=== PATIENT | female | born 1935 | race Hispanic/Latino ===

== ENCOUNTER 2018-04-18 10:51 | Emergency (ER) | payer MEDICARE ==
[2018-04-18 11:43] VITALS: BP 104/33
--- NOTE | 2018-04-18 12:42 | Emergency Department Report ---
ED Extremity Problem HPI - General Chief complaint: Extremity Injury, Lower Stated complaint: LEG PAIN Time Seen by Provider: 04/18/18 12:30 Source: patient Mode of arrival: Ambulatory Limitations: No Limitations - History of Present Illness Initial comments: Patient is a 83-year-old female past history of congestive heart failure COPD and hypertension who is presenting with about 2-3 months of increased bilateral leg swelling. Patient states pain has increased slightly. Patient states the legs event as swollen as they are today for the last several months. Patient denies chest pain shortness of breath at this time. Patient states she went to her primary doctor this morning but they were unable to see her so she decided to come to the emergency department. Patient states the pain is a burning sensation and that she has edema leaking from the skin - Related Data Previous Rx's Medication Instructions Recorded Last Taken Type Clindamycin [Clindamycin Oral] 450 mg PO TID #30 capsule 05/21/14 Unknown Rx Sodium Polystyrene [Kayexalate] 15 gm PO ONCE #1 bottle 05/21/14 Unknown Rx Hydrocodone/Chlorphen Polis(Nf 5 ml PO Q12H PRN #100 ml 05/17/16 Unknown Rx [Tussionex (Nf)] Levofloxacin [Levaquin] 750 mg PO QDAY #7 tablet 05/17/16 Unknown Rx Furosemide [Lasix TAB] 40 mg PO QDAY #7 tablet 04/18/18 Unknown Rx traMADol [Ultram] 50 mg PO Q6HR PRN #7 tablet 04/18/18 Unknown Rx Allergies Allergy/AdvReac Type Severity Reaction Status Date / Time ampicillin Allergy Hives Verified 04/18/18 11:37 Sulfa (Sulfonamide Allergy Rash Verified 04/18/18 11:37 Antibiotics) ED Review of Systems ROS: Stated complaint: LEG PAIN Other details as noted in HPI Comment: All other systems reviewed and negative ED Past Medical Hx - Past Medical History Previous Medical History?: Yes Hx Hypertension: Yes Hx Heart Attack/AMI: Yes Hx Congestive Heart Failure: Yes Hx COPD: Yes Additional medical history: thyroid issues, glaucoma - Surgical History Past Surgical History?: Yes Additional Surgical History: eye surgery, cardiac cath, double mastectomy - Social History Smoking Status: Never Smoker - Medications Home Medications: Home Medications Medication Instructions Recorded Confirmed Last Taken Type Clindamycin [Clindamycin Oral] 450 mg PO TID #30 capsule 05/21/14 Unknown Rx Sodium Polystyrene [Kayexalate] 15 gm PO ONCE #1 bottle 05/21/14 Unknown Rx Hydrocodone/Chlorphen Polis(Nf 5 ml PO Q12H PRN #100 ml 05/17/16 Unknown Rx [Tussionex (Nf)] Levofloxacin [Levaquin] 750 mg PO QDAY #7 tablet 05/17/16 Unknown Rx Furosemide [Lasix TAB] 40 mg PO QDAY #7 tablet 04/18/18 Unknown Rx traMADol [Ultram] 50 mg PO Q6HR PRN #7 tablet 04/18/18 Unknown Rx ED Physical Exam - General Limitations: No Limitations General appearance: alert, in no apparent distress - Head Head exam: Present: atraumatic, normocephalic - Eye Eye exam: Present: normal appearance - ENT ENT exam: Present: mucous membranes moist - Neck Neck exam: Present: normal inspection - Respiratory Respiratory exam: Present: normal lung sounds bilaterally. Absent: respiratory distress, wheezes, rales, rhonchi - Cardiovascular Cardiovascular Exam: Present: regular rate, normal rhythm. Absent: systolic murmur, diastolic murmur, rubs, gallop - GI/Abdominal GI/Abdominal exam: Present: soft, normal bowel sounds - Extremities Exam Extremities exam: Present: normal inspection, other (patient has 3+ edema from the knees down. There is some excoriated skin with some clear serous drainage. There is no warmth however there is some mild erythema. Patient does have intact dorsalis pedal pulses.). Absent: calf tenderness - Back Exam Back exam: Present: normal inspection - Neurological Exam Neurological exam: Present: alert, oriented X3 - Psychiatric Psychiatric exam: Present: normal affect, normal mood - Skin Skin exam: Present: warm, dry, intact, normal color. Absent: rash ED Course Vital Signs 04/18/18 11:37 Temperature 98.2 F Pulse Rate 71 Respiratory 16 Rate Blood Pressure 104/33 O2 Sat by Pulse 96 Oximetry ED Medical Decision Making - Medical Decision Making She was on the lowest dose of Lasix at this time. Patient will have her Lasix dose doubled for the next several days the patient also be referred to wound care as well. Critical care attestation.: If time is entered above; I have spent that time in minutes in the direct care of this critically ill patient, excluding procedure time. ED Disposition Clinical Impression: Dependent edema Disposition: DC-01 TO HOME OR SELFCARE Is pt being admited?: No Does the pt Need Aspirin: No Condition: Stable Instructions: Leg Edema (ED) Prescriptions: Furosemide [Lasix TAB] 40 mg PO QDAY #7 tablet traMADol [Ultram] 50 mg PO Q6HR PRN #7 tablet PRN Reason: Pain Referrals: [facility] [Outside] - 3-5 Days
== END 2018-04-18 12:54 | disposition home or self-care (01) ==
LOC: ED 10:51
DX: R60.9 Edema, unspecified (principal); I11.0 Hypertensive heart disease with heart failure; I50.9 Heart failure, unspecified; J44.9 Chronic obstructive pulmonary disease, unspecified; I25.2 Old myocardial infarction; Z88.1 Allergy status to other antibiotic agents; Z88.2 Allergy status to sulfonamides
CPT/HCPCS: 99282

== ENCOUNTER 2021-10-03 20:12 | Emergency (ER) | payer MEDICARE ==
--- NOTE | 2021-10-03 20:27 | Emergency Department Report ---
ED ENT HPI - General Chief complaint: Nosebleed Stated complaint: NOSE BLEED Time Seen by Provider: 10/03/21 20:16 Source: EMS Mode of arrival: Stretcher Limitations: No Limitations - History of Present Illness Initial comments: Patient presents by ambulance secondary to a nosebleed. She started bleeding from the left side of her nostril, according to EMS. There is then progressed to bleeding from both sides. The skilled nursing staff sent her here. She is on Eliquis due to chronic atrial fibrillation. Patient has not been bleeding from other sites. She states that she has had a nosebleed from other places and has had recurrent nosebleeds before. She states that she has been asking to come off the blood thinners but that has not occurred. She does not feel dizzy or lightheaded. There is no history of recent travel or trauma. - Related Data Previous Rx's Medication Instructions Recorded Last Taken Type Aspirin [Aspir-Low] 81 mg PO QDAY #30 tablet. 10/03/18 Unknown Rx Furosemide [Lasix TAB] 40 mg PO QDAY #7 tablet 10/03/18 Unknown Rx ISOSORBIDE MONOnitrate [Monoket] 20 mg PO QDAY #30 tablet 10/03/18 Unknown Rx Latanoprost 0.005% 1 drop OU QHS #1 bottle 10/03/18 Unknown Rx Levothyroxine [Synthroid] 112 mcg PO QDAY #30 tablet 10/03/18 Unknown Rx Metoprolol [Lopressor TAB] 25 mg PO QDAY #30 tablet 10/03/18 Unknown Rx Omeprazole 20 mg PO DAILY #30 tab.rap. 10/03/18 Unknown Rx Sodium Bicarbonate 650 mg PO TID tablet 10/03/18 Unknown Rx Timolol 0.5% [Timoptic] 1 drop OU QAM #1 bottle 10/03/18 Unknown Rx amLODIPine 2.5 mg PO QDAY #30 10/03/18 Unknown Rx hydrOXYzine 10 mg PO BID PRN #60 10/03/18 Unknown Rx hydrOXYzine HCL [Atarax] 10 mg PO BID PRN oral.liqd 10/03/18 Unknown Rx hydrOXYzine HCL [Atarax] 10 mg PO BID PRN tablet 10/03/18 Unknown Rx oxyCODONE /ACETAMINOPHEN [Percocet 1 tab PO BID PRN #10 tablet 10/03/18 Unknown Rx 5/325 mg] oxyCODONE /ACETAMINOPHEN [Percocet 1 tab PO Q6H PRN tablet 10/03/18 Unknown Rx 5/325 mg] Allergies Allergy/AdvReac Type Severity Reaction Status Date / Time ampicillin Allergy Hives Verified 04/18/18 11:37 Sulfa (Sulfonamide Allergy Rash Verified 04/18/18 11:37 Antibiotics) ED Dental HPI - General Chief complaint: Nosebleed Stated complaint: NOSE BLEED Time Seen by Provider: 10/03/21 20:16 Source: EMS Mode of arrival: Stretcher Limitations: No Limitations - Related Data Previous Rx's Medication Instructions Recorded Last Taken Type Aspirin [Aspir-Low] 81 mg PO QDAY #30 tablet. 10/03/18 Unknown Rx Furosemide [Lasix TAB] 40 mg PO QDAY #7 tablet 10/03/18 Unknown Rx ISOSORBIDE MONOnitrate [Monoket] 20 mg PO QDAY #30 tablet 10/03/18 Unknown Rx Latanoprost 0.005% 1 drop OU QHS #1 bottle 10/03/18 Unknown Rx Levothyroxine [Synthroid] 112 mcg PO QDAY #30 tablet 10/03/18 Unknown Rx Metoprolol [Lopressor TAB] 25 mg PO QDAY #30 tablet 10/03/18 Unknown Rx Omeprazole 20 mg PO DAILY #30 tab.rap. 10/03/18 Unknown Rx Sodium Bicarbonate 650 mg PO TID tablet 10/03/18 Unknown Rx Timolol 0.5% [Timoptic] 1 drop OU QAM #1 bottle 10/03/18 Unknown Rx amLODIPine 2.5 mg PO QDAY #30 10/03/18 Unknown Rx hydrOXYzine 10 mg PO BID PRN #60 10/03/18 Unknown Rx hydrOXYzine HCL [Atarax] 10 mg PO BID PRN oral.liqd 10/03/18 Unknown Rx hydrOXYzine HCL [Atarax] 10 mg PO BID PRN tablet 10/03/18 Unknown Rx oxyCODONE /ACETAMINOPHEN [Percocet 1 tab PO BID PRN #10 tablet 10/03/18 Unknown Rx 5/325 mg] oxyCODONE /ACETAMINOPHEN [Percocet 1 tab PO Q6H PRN tablet 10/03/18 Unknown Rx 5/325 mg] Allergies Allergy/AdvReac Type Severity Reaction Status Date / Time ampicillin Allergy Hives Verified 04/18/18 11:37 Sulfa (Sulfonamide Allergy Rash Verified 04/18/18 11:37 Antibiotics) ED Review of Systems ROS: Stated complaint: NOSE BLEED Other details as noted in HPI Comment: All other systems reviewed and negative Constitutional: denies: fever Eyes: denies: eye pain ENT: as per HPI Respiratory: other (No hemoptysis) Cardiovascular: denies: chest pain Endocrine: denies: unexplained weight loss Gastrointestinal: denies: hematemesis Genitourinary: denies: hematuria Musculoskeletal: denies: back pain Skin: denies: rash Neurological: denies: headache Hematological/Lymphatic: easy bruising ED Past Medical Hx - Past Medical History Hx Hypertension: Yes Hx CVA: No Hx Heart Attack/AMI: No Hx Congestive Heart Failure: Yes Hx Diabetes: No Hx Deep Vein Thrombosis: No Hx Pulmonary Embolism: No Hx GERD: No Hx Liver Disease: No Hx Renal Disease: No Hx Arthritis: No Hx Headaches / Migraines: No Hx Seizures: No Hx Kidney Stones: No Hx Psychiatric Treatment: No Hx Asthma: No Hx COPD: Yes Hx Tuberculosis: No Hx Dementia: No Hx HIV: No Additional medical history: thyroid issues, glaucoma - Surgical History Hx Coronary Stent: No Hx Open Heart Surgery: No Hx Pacemaker: No Hx Internal Defibrillator: No Hx Cholecystectomy: No Hx Appendectomy: No Hx Breast Surgery: Yes Additional Surgical History: eye surgery, cardiac cath, double mastectomy - Family History Family history: hypertension - Social History Smoking Status: Former Smoker - Medications Home Medications: Home Medications Medication Instructions Recorded Confirmed Last Taken Type Aspirin [Aspir-Low] 81 mg PO QDAY #30 tablet. 10/03/18 Unknown Rx Furosemide [Lasix TAB] 40 mg PO QDAY #7 tablet 10/03/18 Unknown Rx ISOSORBIDE MONOnitrate [Monoket] 20 mg PO QDAY #30 tablet 10/03/18 Unknown Rx Latanoprost 0.005% 1 drop OU QHS #1 bottle 10/03/18 Unknown Rx Levothyroxine [Synthroid] 112 mcg PO QDAY #30 tablet 10/03/18 Unknown Rx Metoprolol [Lopressor TAB] 25 mg PO QDAY #30 tablet 10/03/18 Unknown Rx Omeprazole 20 mg PO DAILY #30 tab.rap. 10/03/18 Unknown Rx Sodium Bicarbonate 650 mg PO TID tablet 10/03/18 Unknown Rx Timolol 0.5% [Timoptic] 1 drop OU QAM #1 bottle 10/03/18 Unknown Rx amLODIPine 2.5 mg PO QDAY #30 10/03/18 Unknown Rx hydrOXYzine 10 mg PO BID PRN #60 10/03/18 Unknown Rx hydrOXYzine HCL [Atarax] 10 mg PO BID PRN oral.liqd 10/03/18 Unknown Rx hydrOXYzine HCL [Atarax] 10 mg PO BID PRN tablet 10/03/18 Unknown Rx oxyCODONE /ACETAMINOPHEN [Percocet 1 tab PO BID PRN #10 tablet 10/03/18 Unknown Rx 5/325 mg] oxyCODONE /ACETAMINOPHEN [Percocet 1 tab PO Q6H PRN tablet 10/03/18 Unknown Rx 5/325 mg] ED Physical Exam - General Limitations: No Limitations, Other (Pulse ox noted and normal) General appearance: alert, in no apparent distress, obese - Head Head exam: Present: atraumatic, normocephalic - Eye Eye exam: Present: normal appearance, EOMI. Absent: scleral icterus - ENT ENT exam: Present: other (Patient has left epistaxis. The site cannot be visualized. There is dried blood in the right nostril. There is blood in the posterior pharynx.) - Neck Neck exam: Present: normal inspection. Absent: meningismus - Respiratory Respiratory exam: Present: normal lung sounds bilaterally. Absent: respiratory distress - Cardiovascular Cardiovascular Exam: Present: tachycardia, irregular rhythm - GI/Abdominal GI/Abdominal exam: Present: soft - Extremities Exam Extremities exam: Present: normal capillary refill - Back Exam Back exam: Absent: CVA tenderness (R), CVA tenderness (L) - Neurological Exam Neurological exam: Present: alert, oriented X3, CN II-XII intact - Psychiatric Psychiatric exam: Present: normal affect, normal mood - Skin Skin exam: Present: warm, dry ED Course Vital Signs 10/03/21 20:19 Temperature 99.0 F Pulse Rate 114 H Respiratory 18 Rate Blood Pressure 104/52 [Left] O2 Sat by Pulse 95 Oximetry - Reevaluation(s) Reevaluation #1: 10/03/21 20:23 EMS was met. Anterior Rhino Rocket was placed. Reevaluation #2: 10/03/21 20:43 There was no further bleeding after packing. Patient was found to be in atrial fibrillation with rapid ventricular response. This was asymptomatic. Patient was already anticoagulated. Based on review of the skilled nursing records, she is not on any kind of medicine for antiarrhythmic. She was given Cardizem here. I do believe discharge would be appropriate. - Procedure Description Procedures done: Procedure note: Epistaxis management with Rhino Rocket. Indication: Anterior epistaxis on anticoagulants. Patient was seated upright. The source of bleeding of from the left nostril could not be visualized. Rhino Rocket 5.5 cm was inserted. This was after being soaked in saline. The balloon was inflated with 5 mL of air. Patient tolerated procedure without difficulty. Her only complaint was of pain. There were no complications. ED Medical Decision Making - Medical Decision Making Patient presented with anterior epistaxis. This is likely complicated by the fact that she is on anticoagulants. We will not stop the anticoagulants here. This can be discussed with her regular doctor or her tobacco cloth reclaimer. Patient does not have hypotension. I do not believe that she would have had any significant blood loss based on her current presentation. This started several hours prior to arrival. Patient does not appear to be dizzy or lightheaded. She has been controlled with packing and can be followed up as an outpatient. Critical Care Time: No Critical care attestation.: If time is entered above; I have spent that time in minutes in the direct care of this critically ill patient, excluding procedure time. ED Disposition Clinical Impression: Epistaxis, Atrial fibrillation, chronic Disposition: 03 LONG-TERM FACILITY Is pt being admited?: No Condition: Stable Instructions: Nosebleed, Adult, Atrial Fibrillation, [id number] Additional Instructions: Keep the pack moist. Drink plenty water. Follow-up with your regular doctor at the skilled nursing doctor in 48 hours for packing removal. Return for problems. Discuss anticoagulation with the patient's tobacco cloth reclaimer or family doctor. Referrals: HIGINIO COLVIN MD [Staff Physician] - 3-5 Days PRIMARY CARE, [Referring] - 3-5 Days
[2021-10-03] MEDS ORDERED: dilTIAZem 25 MG/5 ML INJ IV ONE (20:31)
[2021-10-04 18:08] VITALS: BP 117/72
== END 2021-10-04 18:08 ==
LOC: ED 20:12
DX: R04.0 Epistaxis (principal); I48.20 Chronic atrial fibrillation, unspecified; J44.9 Chronic obstructive pulmonary disease, unspecified; Z79.899 Other long term (current) drug therapy; Z98.890 Other specified postprocedural states; Z87.891 Personal history of nicotine dependence; Z88.1 Allergy status to other antibiotic agents; Z88.2 Allergy status to sulfonamides
CPT/HCPCS: 99283